=== PATIENT | female | born 1995 | race Caucasian/White ===

== ENCOUNTER 2020-06-24 06:30 | Outpatient (CLI) | payer OTHER ==
[~2020-06-24] VITALS: Ht 152.4 cm; Wt 49.5 kg
[2020-06-24] MEDS ORDERED: bcp PO (09:56)
[2020-06-24] MEDS ORDERED: BIFI4CAP PO (09:56)
[2020-06-27] MEDS ORDERED: IBUP-1773 PO (09:38)
[2020-06-27] MEDS ORDERED: HYDR-4226 PO (09:38)
== END 2020-06-24 10:11 | disposition home or self-care (01) ==
LOC: PREOP 06:30
PROVIDERS: ATTEND Obstetrics & Gynecology
DX: Z01.818 Encounter for other preprocedural examination (principal)